=== PATIENT | female | born 1995 | race African-American/Black ===

== ENCOUNTER 2018-05-21 00:19 | Emergency (ER) | payer MEDICAID, OTHER ==
[~2018-05-21] VITALS: Ht 167.6 cm; Wt 118.0 kg
[~2018-05-21 00:19] MED LIST: NO MEDS
[2018-05-21] MEDS ORDERED: IBUPROFEN 800MG TABLET PO ONE (04:00)
[2018-05-21 04:23] VITALS: BP 122/50
== END 2018-05-21 04:24 | disposition home or self-care (01) ==
LOC: ER 00:19
DX: N61.0 Mastitis without abscess (principal); F12.10 Cannabis abuse, uncomplicated
CPT/HCPCS: 99283